=== PATIENT | male | born 1965 | race Caucasian/White ===

== ENCOUNTER 2023-06-05 06:38 | Outpatient (OUT) | payer OTHER, SELFPAY | END 2023-06-05 06:39 | disposition home or self-care (01) | LOC: LAB 06:41 | PROVIDERS: PCP Family Medicine; Visit Provider Urology | DX: N40.1 Benign prostatic hyperplasia with lower urinary tract symptoms (principal) | CPT/HCPCS: 36415; 84153 ==

== ENCOUNTER 2024-06-10 14:12 | Outpatient (OUT) | payer OTHER, SELFPAY ==
--- NOTE | 2024-06-10 14:32 | XR_ITS ---
The [address] [address] Patient Name: NELLY FARAH MRN: [id number] date: 1965 Sex: M Assigned Patient Location: [facility] Current Patient Location: Accession/Order Number: [id number] Exam Date: 06/10/2024 14:35 Report Date: 06/11/2024 13:28 At the request of: ABBEY QURESHI Procedure: XR foot RT min 3V PROCEDURE: XR foot RT min 3V HISTORY: Right Foot Pain COMPARISON: None. FINDINGS: BONES:Moderate degenerative change of the first metatarsophalangeal joint. Mild degenerative changes of the second through fourth tarsal-metatarsal joints. Flattening of the plantar arch. Suspect old healed fracture of distal fibula. SOFT TISSUES:No visible soft tissue swelling. EFFUSION:None visible. OTHER: Negative. XR/XR foot RT min 3V IMPRESSION: 1. No appreciable acute abnormality. 2. Multifocal degenerative changes. 3. Marked pes planus. Electronically authenticated by: KEL NAVA Date: 06/11/2024 13:28
== END 2024-06-10 14:13 | disposition home or self-care (01) ==
LOC: RAD 14:14
PROVIDERS: PCP Family Medicine; Visit Provider Podiatrist Foot & Ankle Surgery
DX: M79.671 Pain in right foot (principal); R97.20 Elevated prostate specific antigen [PSA]
CPT/HCPCS: 73630

== ENCOUNTER 2024-06-10 14:16 | Outpatient (OUT) | payer OTHER, SELFPAY ==
[2024-06-10 17:14] LABS: Prostate Specific Antigen Dx 0.57 ng/mL (<=4.00)
== END 2024-06-10 14:17 | disposition home or self-care (01) ==
LOC: LAB 14:17
PROVIDERS: PCP Family Medicine; Visit Provider Urology
DX: R97.20 Elevated prostate specific antigen [PSA] (principal)
CPT/HCPCS: 36415; 84153